=== PATIENT | male | born 2000 | race Caucasian/White ===

== ENCOUNTER 2023-07-12 17:26 | Emergency (ER) | payer SELFPAY ==
[2023-07-12] MEDS ORDERED: dilTIAZem 25 MG/5 ML VIAL ONE (18:24)
[2023-07-12 18:27] LABS: #Basophils 0.03 10x3/uL (0.0-0.2); %Basophils 0.2 % (0.0-1.0); %Lymphocytes 18.6 % (21.0-51.0); %Monocytes 11.8 % (0.0-10.0); %Neutrophils 66.9 % (42.0-75.0); Hematocrit 45.7 % (42.0-52.0); Hemoglobin 15.7 g/dL (14.0-18.0); Mean Corpuscular HGB CONC 34.4 g/dL (32.0-36.0); Mean Corpuscular Hemoglobin 29.1 pg (27.0-31.0); Mean Corpuscular Volume 84.8 fL (78.0-98.0); Mean Platelet Volume 8.9 fL (7.4-10.4); Platelet Count 296 10x3/uL (130-400); RBC Distribution Width 12.7 % (11.5-14.5); Red Blood Cell (RBC) Count 5.39 mill/uL (4.70-6.10)
[2023-07-12 18:48] LABS: ALT (SGPT) 43 U/L (8-55); AST (SGOT) 21 U/L (5-34); Albumin 3.8 g/dL (3.5-5.0); Alkaline Phosphatase 55 U/L (40-110); Anion Gap 16 mmol/L (10-20); BUN (Urea Nitrogen) 12 mg/dL (8.9-20.6); Bilirubin, Total 0.4 mg/dL (0.2-1.2); Calc. Creatinine Clearance 0 mL/min (70-130); Calcium 9.3 mg/dL (7.8-10.44); Carbon Dioxide 21 mmol/L (22-29); Chloride 103 mmol/L (98-107); Estimated GFR 130; Glucose 224 mg/dL (70-105); Lipase 17 U/L (8-78); Potassium 4.1 mmol/L (3.5-5.1); Protein, Total 6.8 g/dL (6.0-8.3); Sodium 136 mmol/L (136-145)
[2023-07-12 18:51] LABS: Troponin I Less than 0.010 ng/mL (< 0.028)
== END 2023-07-12 20:07 | disposition home or self-care (01) ==
LOC: ERS 17:26
DX: I10 Essential (primary) hypertension (principal); Z79.899 Other long term (current) drug therapy
CPT/HCPCS: 71045; 80053; 83690; 84484; 85025; 85379; 93005

== ENCOUNTER 2023-11-28 12:55 | Emergency (ER) | payer BC ==
[2023-11-28] MEDS ORDERED: Dexamethasone 4 MG TAB ONE (13:48)
[2023-11-28] MEDS ORDERED: Ketorolac Tromethamine 30 MG (1 mL) VIAL ONE (13:48)
== END 2023-11-28 13:56 | disposition home or self-care (01) ==
LOC: ERS 12:55
DX: J01.90 Acute sinusitis, unspecified (principal); B96.89 Other specified bacterial agents as the cause of diseases classified elsewhere; H10.89 Other conjunctivitis; I10 Essential (primary) hypertension; E11.9 Type 2 diabetes mellitus without complications
CPT/HCPCS: 96372; 99282; J1885; J8540

== ENCOUNTER 2023-12-01 14:06 | Emergency (ER) | payer BC | END 2023-12-01 15:51 | disposition home or self-care (01) | LOC: ERS 14:06 | DX: J02.9 Acute pharyngitis, unspecified (principal); R05.9 Cough, unspecified; I10 Essential (primary) hypertension; E11.9 Type 2 diabetes mellitus without complications; Z55.0 Illiteracy and low-level literacy | CPT/HCPCS: 71046 ==

== ENCOUNTER 2024-02-24 14:51 | Emergency (ER) | payer BC, OTHER ==
[2024-02-24] MEDS ORDERED: Ketorolac Tromethamine 30 MG (1 mL) VIAL ONE (15:47)
== END 2024-02-24 15:48 | disposition home or self-care (01) ==
LOC: ERS 14:51
DX: M54.50 Low back pain, unspecified (principal); I10 Essential (primary) hypertension; E11.9 Type 2 diabetes mellitus without complications
CPT/HCPCS: 96372; 99283; J1885

== ENCOUNTER 2025-01-30 09:55 | Emergency (ER) | payer BC, OTHER ==
[2025-01-30] MEDS ORDERED: Ketorolac Tromethamine 30 MG (1 mL) VIAL ONE (10:51)
[2025-01-30 11:21] LABS: #Basophils 0.04 10x3/uL (0.0-0.2); #Eosinophils 0.22 10x3/uL (0.0-0.7); #Monocytes 1.18 10x3/uL (0.11-0.59); #Neutrophils 5.26 10x3/uL (1.40-6.50); %Basophils 0.5 % (0.0-1.0); %Eosinophils 2.5 % (0.0-10.0); %Lymphocytes 23.6 % (21.0-51.0); %Monocytes 13.4 % (0.0-10.0); %Neutrophils 59.7 % (42.0-75.0); Hematocrit 47.0 % (42.0-52.0); Hemoglobin 16.1 g/dL (14.0-18.0); Mean Corpuscular Hemoglobin 27.7 pg (27.0-31.0); Mean Corpuscular Volume 80.9 fL (78.0-98.0); Platelet Count 207 10x3/uL (130-400); Red Blood Cell (RBC) Count 5.81 mill/uL (4.70-6.10); White Blood Cell (WBC) Count 8.81 10x3/uL (4.8-10.8)
[2025-01-30 11:37] LABS: ALT (SGPT) 27 U/L (Less than 45); AST (SGOT) 16 U/L (11-34); Albumin 3.6 g/dL (3.1-4.5); Alkaline Phosphatase 63 U/L (40-110); Anion Gap 15 mmol/L (10-20); BUN (Urea Nitrogen) 9 mg/dL (8.9-20.6); Bilirubin, Total 0.6 mg/dL (0.3-1.2); Calc. Creatinine Clearance 0 mL/min (70-130); Calcium 9.0 mg/dL (7.8-10.44); Carbon Dioxide 22 mmol/L (22-29); Chloride 103 mmol/L (98-107); Globulin 3.3 g/dL (2.4-3.5); Glucose 245 mg/dL (70-105); Potassium 4.0 mmol/L (3.5-5.1); Sodium 136 mmol/L (136-145)
[2025-01-30 12:00] LABS: MONO NEGATIVE CONTROL ZONE White (Negative) (White); MONO POSITIVE CONTROL Pink Line (Positive) (PINK/RED); Mononucleosis NEGATIVE (NEGATIVE)
[2025-01-30] MEDS ORDERED: Amoxicillin/Potassium Clav 875 MG TAB ONE (13:47)
[2025-01-30] MEDS ORDERED: Iopamidol-370 76% 500 ML MDV (1 ML CHARGE) ONE (13:57)
== END 2025-01-30 14:03 | disposition home or self-care (01) ==
LOC: ERS 09:55
DX: K11.20 Sialoadenitis, unspecified (principal); I10 Essential (primary) hypertension; E11.9 Type 2 diabetes mellitus without complications
CPT/HCPCS: 36415; 70491; 80053; 83605; 85025; 86308; 87040; 87081; 87428; 87430; 96374; 96375; J1885; J2919; Q9967